=== PATIENT | female | born 1955 | race Caucasian/White ===

== ENCOUNTER 2020-01-08 11:07 | Outpatient (CLI) | payer OTHER, SELFPAY ==
[2020-01-08 13:14] LABS: IFOB Positive Control Positive; Immunochemical Fecal Occult Bl Negative (N)
== END 2020-01-08 11:08 | disposition home or self-care (01) ==
PROVIDERS: PCP Internal Medicine Gastroenterology; Visit Provider Surgery
DX: R10.32 Left lower quadrant pain (principal)
CPT/HCPCS: 82274

== ENCOUNTER 2020-01-17 00:50 | Day surgery (SDC) | payer OTHER, SELFPAY ==
[2020-01-15 13:44] VITALS: BMI 22.8
--- NOTE | 2020-01-17 10:41 | PM.HPGS ---
History of Present Illness History of Present Illness Consent: Risks, benefits, and alternatives of a colonoscopy with possible biopsy possible polypectomy have been discussed and questions answered. Patient agrees to proceed with procedure. Chief complaint: LLQ Abdominal Pain Narrative: Ana Pizano is a 64 year old female. Ms. Pizano recently was seen in the office for a recheck after laparoscopic cholecystectomy with IOC performed 09/16/2019. At her office visit on 10/02/2019, she complained of persistent abdominal pain and constipation after surgery. Since that time, she has increased her water intake and puts ClearLax in her morning coffee, and constipation has resolved. In regards to her cholecystectomy, she has no complaints and is feeling well. She still notices pain her her LLQ, and has experienced this intermittently for at least 2+ years. She is unable to associate this pain with any aggravating factors and states the pain is sporadic. She thinks her last colonoscopy was at least 6 years ago while she was in [place]. She doesn't recall being told she had any polyps, but can't clearly recall. She has family hx of colon CA in her sister, who at the age of 50. Patient relates that she has had no changes over the last month or so. She tolerated the prep well. She noticed no blood per rectum during the prep. Review of Systems Constitutional: Constitutional: Reports no additional constitutional complaints, Reports fatigue and Denies malaise Eyes: Eyes: Denies change in vision and Denies loss of vision ENT: Reports Normal hearing present, Denies change in voice, Denies dizziness, Denies hoarseness and Denies sore throat Cardiovascular: Cardiovascular: Denies chest pain, Denies leg edema and Denies dyspnea Respiratory: Respiratory: Denies cough, Denies dyspnea and Denies wheezing Gastrointestinal: Gastrointestinal: Reports abdominal pain ( periodic, lower abdominal), Denies hematochezia, Denies change in bowel habits, Denies heartburn, Denies diarrhea and Denies vomiting Comments: history of previous colonoscopy about 6 years ago in [place]. She believes there were a few polyps removed at that time. Genitourinary: Genitourinary: Denies urinary frequency and Denies urinary incontinence Neurologic: Reports Normal hearing present, Denies confusion, Denies dizziness, Denies loss of vision, Denies memory loss and Denies seizure-like activity Psychiatric: Psychiatric: Denies confusion, Denies depression and Denies memory loss Endocrine: Endocrine: Denies cold intolerance and Reports fatigue Hematologic/Lymphatic: Hematologic/Lymphatic: Denies easy bleeding and Denies easy bruising Allergic/Immunologic: Allergic/Immunologic: Denies wheezing PMFSH Past Medical History Medical History (Updated 01/17/20 @ 12:36 by Robbie Palacios MD) Arrhythmia comes and goes; no reason; self limiting when occurs Cholecystitis, acute HTN (hypertension) Hypothyroidism Surgical History Surgical History H/O: hysterectomy History of cholecystectomy Social History Social History Smoking status: Never smoker Alcohol intake: never Gender identity (if verbalized by the patient): Female Meds Home Medications and Allergies Home Medications Medication Instructions Recorded Confirmed Type amlodipine 5 mg PO DAILY 09/09/19 01/17/20 History carvedilol 12.5 mg PO BID 09/09/19 01/17/20 History levothyroxine 125 mcg PO DAILY 09/09/19 01/17/20 History multivitamin 1 tablet PO DAILY 09/09/19 01/17/20 History sertraline 100 mg PO DAILY 09/09/19 01/17/20 History trazodone 100 mg PO HS 09/09/19 01/17/20 History triamterene-hydrochlorothiazid 1 cap PO DAILY 09/09/19 01/17/20 History Allergies Allergy/AdvReac Type Severity Reaction Status Date / Time No Known Allergies Allergy Verified 01/17/20 12:02
--- NOTE | 2020-01-17 11:31 | WPDANESEPPF ---
Anes - Initial Pre Proc Eval Procedure: Operation Date: 01/17/20 13:00 Proposed Procedures p Colonoscopy With Possible Polypectomy Possible Biopsy - Mac Castro MD Date/Time: 01/17/20 11:31 Surgeon: Mac Castro MD Pre Op Diagnosis: LLQ Abdominal Pain Patient Data Age: 64 Gender: F Height: 5 ft 7 in Weight: 66 kg Allergies Allergy/AdvReac Type Severity Reaction Status Date / Time No Known Allergies Allergy Verified 01/17/20 12:02 Home Medications Medication Instructions Recorded Confirmed Type amlodipine 5 mg PO DAILY 09/09/19 01/17/20 History carvedilol 12.5 mg PO BID 09/09/19 01/17/20 History levothyroxine 125 mcg PO DAILY 09/09/19 01/17/20 History multivitamin 1 tablet PO DAILY 09/09/19 01/17/20 History sertraline 100 mg PO DAILY 09/09/19 01/17/20 History trazodone 100 mg PO HS 09/09/19 01/17/20 History triamterene-hydrochlorothiazid 1 cap PO DAILY 09/09/19 01/17/20 History Patient hx anesthesia problems: none Family hx anesthesia problems: none PMFSH Social History Social History Smoking status: Never smoker Alcohol intake: never Gender identity (if verbalized by the patient): Female Anes - Eval Final PreProcedure Day of Procedure 01/17/20 11:31 Patient weight: normal Heart: regular rate and rhythm Lungs: clear to auscultation Airway: Mallampati scale class II Neurological: alert and oriented Last oral intake: >/= 8 hours ASA classification: II Emergent: no Anesthetic plan: proceed Anesthesia type and monitoring: general GIVS and standard monitoring Informed Consent: The patient's anesthetic plan and its attendant risks and benefits were discussed with the patient/family/POA. Questions were solicited and answers provided to the satisfaction of the patient/family/POA.
[2020-01-17 11:55] VITALS: BP 119/78; PULSE 71; RESP 18; TEMP 36.3; O2SAT 98; BMI 22.1
[2020-01-17] MEDS: LACTATED RINGERS 1,000 ML 150 ML IV CONT (12:26)
[2020-01-17 13:58] VITALS: BP 97/57; PULSE 64; RESP 18; O2SAT 100
[2020-01-17 14:08] VITALS: BP 92/59; PULSE 61; RESP 19; O2SAT 100
[2020-01-17 14:18] VITALS: BP 96/56; PULSE 56; RESP 18; O2SAT 100
[2020-01-17 14:28] VITALS: BP 105/66; PULSE 52; RESP 18; O2SAT 100
== END 2020-01-17 14:52 | disposition home or self-care (01) ==
PROVIDERS: PCP Internal Medicine Gastroenterology; Visit Provider Surgery
PROC: 0DJD8ZZ Inspection of Lower Intestinal Tract, Via Natural or Artificial Opening Endoscopic (ICD-10-PCS; CPT 45378; principal; 2020-01-17 13:00)
DX: R10.32 Left lower quadrant pain (principal); K62.1 Rectal polyp; K63.5 Polyp of colon; K57.30 Diverticulosis of large intestine without perforation or abscess without bleeding; Z80.0 Family history of malignant neoplasm of digestive organs; I10 Essential (primary) hypertension; E03.9 Hypothyroidism, unspecified
CPT/HCPCS: 45380; 88305; J2704; J7120